=== PATIENT | male | born 1995 | race Two or more races ===

== ENCOUNTER → 2018-04-08 | Emergency (ER) | payer OTHER ==
[~2018-04-08] VITALS: Ht 170.2 cm; Wt 70.3 kg
[~2018-04-08] MED LIST: AMOX1TAB12 PO; CATAFLAM50 MG PO; RITALIN LA40 MG
== END | disposition home or self-care (01) ==
LOC: ER 21:49
DX: S61.221A Laceration with foreign body of left index finger without damage to nail, initial encounter (principal); W26.0XXA Contact with knife, initial encounter; Y93.89 Activity, other specified; Y92.69 Other specified industrial and construction area as the place of occurrence of the external cause; Y99.8 Other external cause status

== ENCOUNTER 2018-04-19 12:24 | Emergency (ER) | payer OTHER ==
[~2018-04-19] VITALS: Ht 170.2 cm; Wt 70.3 kg
== END 2018-04-19 21:08 | disposition home or self-care (01) ==
LOC: ER 12:24
DX: Z48.02 Encounter for removal of sutures (principal)

== ENCOUNTER 2019-08-25 18:21 | Emergency (ER) | payer OTHER ==
[~2019-08-25] VITALS: Ht 172.7 cm; Wt 73.5 kg
== END 2019-08-25 22:18 | disposition home or self-care (01) ==
LOC: ER 18:21
DX: S13.4XXA Sprain of ligaments of cervical spine, initial encounter (principal); V49.88XA Car occupant (driver) (passenger) injured in other specified transport accidents, initial encounter; Y93.84 Activity, sleeping; Y92.413 State road as the place of occurrence of the external cause; Y99.8 Other external cause status

== ENCOUNTER 2020-07-25 10:33 | Outpatient (CLI) | payer OTHER | END 2020-07-25 10:36 | disposition home or self-care (01) | LOC: LAB 10:33 | DX: D64.89 Other specified anemias (principal); E78.49 Other hyperlipidemia; N39.0 Urinary tract infection, site not specified; E03.8 Other specified hypothyroidism; I10 Essential (primary) hypertension ==

== ENCOUNTER 2021-07-10 13:15 | Outpatient (CLI) | payer OTHER | END 2021-07-10 13:18 | disposition home or self-care (01) | LOC: LAB 13:15 | DX: U07.1 COVID-19 (principal); Z11.52 Encounter for screening for COVID-19; Z20.822 Contact with and (suspected) exposure to COVID-19 ==

== ENCOUNTER → 2021-07-15 14:33 | Outpatient (CLI) | payer OTHER | END | disposition home or self-care (01) | LOC: LAB 14:33 | DX: U07.1 COVID-19 (principal) ==

== ENCOUNTER 2021-07-20 16:45 | Outpatient (CLI) | payer OTHER | END 2021-07-20 16:51 | disposition home or self-care (01) | LOC: LAB 16:45 | DX: Z20.828 Contact with and (suspected) exposure to other viral communicable diseases (principal) ==